=== PATIENT | male | born 1960 | race Caucasian/White ===

== ENCOUNTER 2020-06-20 11:57 | Emergency (ER) | payer OTHER ==
[~2020-06-20] VITALS: Ht 180.3 cm; Wt 82.0 kg
[2020-06-20] MEDS ORDERED: IV NORMAL SALINE 500ML 500 ML IV ONE ×3 (12:45→15:30)
--- NOTE | 2020-06-20 13:01 | PHYS DOC ---
Adult General Chief Complaint Chief Complaint: NOSEBLEED HPI HPI Patient is a 60-year-old male presents to the emergency department with a complaint of a nosebleed that started at approximately 11:00 today. Patient states he was at urgent care and was sent down here for emergency treatment related to a hypotensive blood pressure, patient has unaware of what the blood pressure was. Patient states he is had multiple nosebleeds since he was 7 years old. Patient states it is always from the left nostril. Patient states that he is on the blood thinner Xarelto related to his diagnosed multiple myeloma. Patient states he was first diagnosed in 2010, was treated and was in remission until March 2020. Patient states he is currently being treated at the oncology clinic. Patient states his nose bled yesterday for 2 hours but resolved. Patient states he usually treats his nosebleeds with saline nasal spray to keep his nostrils moist. Patient states however his nose does bleed off and on throughout the year and he usually takes care of it at home. Patient states he became concerned as he was unable to get this nose bleed to stop and seek care at urgent care today. Patient denies any pain. Patient denies chest pain, palpitations, shortness of breath, chest congestion. Patient denies any nausea vomiting or diarrhea. Patient denies any numbness or tingling to his extremities. Patient denies feeling dizzy or lightheaded. Patient states that he was treated at and admitted on 08 June 2020 for Covid 19+, was in the hospital for 5 days and treated with IV steroids and IV antibiotics and was released. Patient denies having any Covid symptoms today. Review of Systems Review of Systems 14 body systems of review of systems have been reviewed. See HPI for pertinent positives and negative responses, otherwise all other systems are negative, nonpertinent or noncontributory. Current Medications Current Medications Patient reports taking Xarelto, methadone, oxycodone, vitamin D, Decadron, pomalidomide. Current Medications Medications (Trade) Dose Ordered Sig/Rhonda Start Time Stop Time Status Last Admin Dose Admin Sodium Chloride 500 ml @ 0 mls/hr 1X ONCE 06/20/20 12:45 06/20/20 12:47 DC Allergies Allergies Allergies Coded Allergies Type Severity Reaction Last Updated Verified Penicillins Allergy Unknown 06/20/20 Yes cephalexin Allergy Unknown 2/9/21 Yes Physical Exam Physical Exam Constitutional: Well developed, well nourished, no acute distress, non-toxic appearance. Patient has rolled up Kleenex tissue inserted into left nostril with nasal clamp during physical exam, no bleeding from right nostril during exam, patient appears pale. HENT: Normocephalic, atraumatic, bilateral external ears normal, oropharynx moist, no oral exudates, right nostril turbinates within normal limits, moist, left nostril has Kleenex tissue inserted with nasal clamp. Scant postnasal bright red bleeding without clots appreciated. No uvular edema appreciated, no tonsillar edema appreciated, oropharynx moist and pink Eyes: PERRLA, EOMI, conjunctiva normal, no discharge. Neck: Normal range of motion, no tenderness, supple, no stridor. Cardiovascular:Heart rate regular rhythm, no murmur, heart sounds S1-S2 Lungs & Thorax: Bilateral breath sounds clear to auscultation all lung ferraro. Abdomen: Bowel sounds normal, soft, no tenderness, no masses, no pulsatile masses. Skin: Warm, dry, no erythema, no rash. Back: No tenderness, no CVA tenderness. Extremities: No tenderness, no cyanosis, no clubbing, ROM intact, no edema. Bilateral upper extremity cap refill less than 2 seconds. Neurologic: Alert and oriented X 3, normal motor function, normal sensory function, no focal deficits noted. Psychologic: Affect normal, judgement normal, mood normal. Current Patient Data Lab Results Laboratory Tests Test 06/20/20 12:47 White Blood Count 8.6 x10^3/uL Red Blood Count 3.79 x10^6/uL Hemoglobin 11.2 g/dL Hematocrit 35.0 % Mean Corpuscular Volume 92 fL Mean Corpuscular Hemoglobin 30 pg Mean Corpuscular Hemoglobin Concent 32 g/dL Red Cell Distribution Width 14.7 % Platelet Count 322 x10^3/uL Neutrophils (%) (Auto) 86 % Lymphocytes (%) (Auto) 4 % Monocytes (%) (Auto) 9 % Eosinophils (%) (Auto) 1 % Basophils (%) (Auto) 0 % Neutrophils # (Auto) 7.4 x10^3uL Lymphocytes # (Auto) 0.3 x10^3/uL Monocytes # (Auto) 0.8 x10^3/uL Eosinophils # (Auto) 0.1 x10^3/uL Basophils # (Auto) 0.0 x10^3/uL Prothrombin Time 19.5 SEC Prothromb Time International Ratio 1.9 Activated Partial Thromboplast Time 41 SEC Fibrinogen 779 mg/dL D-Dimer (Tereza) 2.05 mg/L Sodium Level 139 mmol/L Potassium Level 3.0 mmol/L Chloride Level 101 mmol/L Carbon Dioxide Level 30 mmol/L Anion Gap 8 Blood Urea Nitrogen 22 mg/dL Creatinine 1.2 mg/dL Estimated GFR (Cockcroft-Gault) 62.2 BUN/Creatinine Ratio 18 Glucose Level 99 mg/dL Calcium Level 8.3 mg/dL Magnesium Level 2.1 mg/dL Total Bilirubin 0.4 mg/dL Aspartate Amino Transf (AST/SGOT) 39 U/L Alanine Aminotransferase (ALT/SGPT) 67 U/L Alkaline Phosphatase 115 U/L Total Protein 6.1 g/dL Albumin 2.0 g/dL Albumin/Globulin Ratio 0.5 Current Medications Medications (Trade) Dose Ordered Sig/Rhonda Route PRN Reason Start Time Stop Time Status Last Admin Dose Admin Sodium Chloride 500 ml @ 0 mls/hr 1X ONCE IV 06/20/20 12:45 06/20/20 12:47 DC 06/20/20 12:45 Sodium Chloride 500 ml @ 0 mls/hr 1X ONCE IV 06/20/20 14:30 06/20/20 14:37 DC 06/20/20 14:33 Potassium Chloride (Klor-Con) 40 meq 1X ONCE PO 06/20/20 14:45 06/20/20 14:46 DC 06/20/20 14:44 Phenylephrine HCl (Rey-Synephrine 1% Nasal) 2 drop 1X ONCE NS 06/20/20 15:00 06/20/20 15:01 DC 06/20/20 15:28 Sodium Chloride 500 ml @ 0 mls/hr 1X ONCE IV 06/20/20 15:30 06/20/20 15:31 DC 06/20/20 15:26 EKG EKG [] Radiology/Procedures Radiology/Procedures [] Heart Score Risk Factors: Risk Factors: DM, Current or recent (<one month) smoker, HTN, HLP, family history of CAD, obesity. Risk Scores: Risk Factors: DM, Current or recent (<one month) smoker, HTN, HLP, family history of CAD, obesity. Course & Med Decision Making Course & Med Decision Making Pertinent Labs and Imaging studies reviewed. (See chart for details) 60-year-old male, vital signs reviewed, presents emergency department complaining of nosebleed from the left nostril since 11 AM today. Patient blood pressure during examination was 88/52 with a pulse of 75. ED work-up includes saline lock with 500 cc normal saline bolus, serum labs, will leave nasal clamp on for approximately 30 minutes and will exam for continued left nostril bleeding. Patient had 2 disulfurizer tender, continuous pulse ox, noninvasive blood pressure monitoring. Patient was given an additional 500 cc normal saline bolus x2 for ongoing hypotension that resolved. Removed tissue from left nostril, applied Rey- Synephrine spray with gauze into left nostril. Will reevaluate in 20 minutes. Patient's potassium 3.0, will give 40 mEq p.o. potassium in the ED today. Removed Rey-Synephrine soaked gauze from left nostril, no bleeding appreciated, will reevaluate for bleeding in 20 minutes. There is no bleeding appreciated from right or left nostril. Patient states that the bleeding has resolved. Patient's vital signs stable, patient has remained normotensive since third bolus of normal saline. Discharge blood pressure left upper extremity 120/61, heart rate 72. Patient does not look toxic in appearance, the patient is no longer pale in appearance. Discussed with patient need to use nasal saline spray daily, follow-up with primary care physician regarding PT/INR target for Xarelto. Patient gave verbal understanding of discharge home instructions, follow-up with primary care and oncology physicians, return to ER precautions and concerns, patient discharged home without incident. Dragon Disclaimer Dragon Disclaimer This electronic medical record was generated, in whole or in part, using a voice recognition dictation system. 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 Your potassium was low today in the ER we have given you a potassium supplement, however I recommend you eat potassium rich foods. Please follow-up with your primary care or oncologist for a reevaluation of your bleeding times related to your Xarelto medication. Return to the emergency department for worsening symptoms or other concerns. EMERGENCY DEPARTMENT GENERAL DISCHARGE INSTRUCTIONS Thank you for coming to [facility] (ED) today and trusting us with you care. We trust that you had a positivie experience in our Emergency Department. If you wish to speak to the department management, you may call the director at [phone]. YOUR FOLLOW UP INSTRUCTIONS ARE FOLLOWS: 1. Do you have a private Doctor? If you do not have a private doctor, please ask for a resource list of physicians or clinics that may be able to assist you with follow up care. 2. The Emergency Physician has interpreted your x-rays. The X-Ray specialist will also review them. If there is a change in the findings, you will be notified in 48 hours when at all possible. 3. A lab test or culture has been done, your results will be reviewed and you will be notified if you need a change in treatment. ADDITIONAL INSTRUCTIONS AND INFORMATION: 1. Your care today has been supervised by a physician who is specially trained in emergency care. Many problems require more than one evaluation for a complete diagnosis and treatment. We recommend that you schedule your follow up appointment as recommended to ensure complete treatment of you illness or injury. If you are unable to obtain follow up care and continue to have a problem, or if your condition worsens, we recommend that you return to the ED. 2. We are not able to safely determine your condition over the phone nor are we able to give sound medical advice over the phone. For these safety reasons, if you call for medical advice we will ask you to come to the ED for further evaluation. 3. If you have any questions regarding these discharge instructions please call the ED at [phone]. SAFETY INFORMATION: In the interest of safety, wellness, and injury prevention; we encourage you to wear your sealbelt, if you smoke; quite smoking, and we encourage family to use a protective helmet for bicycling and other sporting events that present an increased risk for head injury. IF YOUR SYMPTOMS WORSEN OR NEW SYMPTOMS DEVELOP, OR YOU HAVE CONCERNS ABOUT YOUR CONDITION; OR IF YOUR CONDITION WORSENS WHILE YOU ARE WAITING FOR YOUR FOLLOW UP APPOINTMENT; EITHER CONTACT YOUR PRIMARY CARE DOCTOR, THE PHYSICIAN WHOSE NAME AND NUMBER YOU WERE GIVEN, OR RETURN TO THE ED IMMEDIATELY. Problem Qualifiers Additional Impressions: Hypotension Hypotension type: unspecified hypotension type Qualified Codes: I95.9 - Hypotension, unspecified RACHEL MATHIS APRN Jun 20, 2020 13:01
[2020-06-20 13:25] LABS: BASO % 0 % (0-3); EOS # 0.1 x10^3/uL (0.0-0.7); EOS % 1 % (0-3); HEMOGLOBIN 11.2 g/dL (13.0-17.5); LYMPH # 0.3 x10^3/uL (1.0-4.8); LYMPH % 4 % (24-48); MEAN CORPUSCULAR HEMOGLOBIN 30 pg (25-35); MEAN CORPUSCULAR HGB CONC 32 g/dL (31-37); MEAN CORPUSCULAR VOLUME 92 fL (79-100); MONO # 0.8 x10^3/uL (0.0-1.1); MONO % 9 % (0-9); NEUT # 7.4 x10^3uL (1.8-7.7); NEUT % 86 % (31-73); PLATELET COUNT 322 x10^3/uL (140-400); RED BLOOD COUNT 3.79 x10^6/uL (4.30-5.70); RED CELL DISTRIBUTION WIDTH 14.7 % (11.5-14.5); WHITE BLOOD COUNT 8.6 x10^3/uL (4.0-11.0)
[2020-06-20 13:44] LABS: ALBUMIN/GLOBULIN RATIO 0.5 (1.0-1.7); CALCIUM 8.3 mg/dL (8.5-10.1); CREATININE 1.2 mg/dL (0.7-1.3); GFR 62.2; MAGNESIUM 2.1 mg/dL (1.8-2.4); TOTAL BILIRUBIN 0.4 mg/dL (0.2-1.0); TOTAL PROTEIN 6.1 g/dL (6.4-8.2)
[2020-06-20] MEDS ORDERED: POTASSIUM CHLORIDE 20 MEQ TABLET.ER. PO ONE (14:45)
[2020-06-20] MEDS ORDERED: PHENYLEPHRINE 1% NASAL DROP 30ML BOTTLE. NS ONE (15:00)
[2020-06-20 16:30] VITALS: BP 110/51
== END 2020-06-20 16:38 | disposition home or self-care (01) ==
LOC: ER 11:57
DX: R04.0 Epistaxis (principal); E87.6 Hypokalemia; I95.9 Hypotension, unspecified
CPT/HCPCS: 36415; 80053; 83735; 85025; 85049; 85379; 85384; 85610; 85730; 99285; J7040